=== PATIENT | female | born 1965 | race Hispanic/Latino ===

== ENCOUNTER → 2017-10-14 | Outpatient (CLI) | payer OTHER ==
[~2017-10-14] MED LIST: BENTYL10 MG PO; BLACK COHOSH540 MG PO; LANTUS 3ML100 UNITS/ INJ; LEVOTHYROXINE50 MCG PO; LOSARTAN POTASS50 MG PO; METFORMIN HCL1000 MG PO; MULTI-VITAMIN1 EACH PO; PROBIOTIC PO; SERTRALINE HCL50 MG PO; SIMVASTATIN20 MG PO; SUGAR BLOCKER PO; TROUJEO SQ; VITAMIN D350000 UNIT PO; ZEGERID 40 MG1 EACH; ZEGERID PO
--- NOTE | 2017-10-14 19:05 | Diagnostic Imaging Report ---
PROCEDURE:ABDOMEN-1VIEW (KUB) COMPARISON:KUB, 09/18/17. INDICATIONS:PREOP, STENT PLACED, RIGHT FLANK PAIN FINDINGS:Supine view of the abdomen shows a normal distribution of air in the small and large bowel. Again noted is a double-J right ureteral stent extending from the level of the right kidney to the bladder. Adjacent to the proximal aspect of the stent, near the UPJ, again noted is a calculus measuring 5 mm. There is a 3 mm calcification adjacent to the distal aspect of the stent, near the UVJ. It is uncertain if this smaller calcification is in the ureter or represents a phlebolith in the pelvis. Both calcifications are unchanged in position from the previous exam. Again noted are cholecystectomy clips. There is degenerative change in the spine. CONCLUSION:Stable position of right double-J ureteral stent. Again noted is a 5 mm calcification adjacent to the proximal aspect of the stent, near the UPJ level. Again noted is a 3 mm calcification adjacent to the distal aspect of the stent, near the UVJ level, possibly a small distal ureteral calculus or phlebolith in the pelvis. The calcifications are unchanged in position from previous exam. Dictated by: Duy Johnson M.D. on 10/14/2017 at 19:14 Electronically approved by: Duy Johnson M.D. on 10/14/2017 at 19:14
== END ==
LOC: RAD 15:44
PROVIDERS: ATTEND Urology
DX: N13.30 Unspecified hydronephrosis (principal); N20.0 Calculus of kidney
CPT/HCPCS: 74000

== ENCOUNTER → 2017-10-16 | Day surgery (SDC) | payer OTHER ==
[2017-10-14 17:08] LABS: ANION GAP 11.7 mmol/L (8-16); BLOOD UREA NITROGEN 12 mg/dL (7-26); BUN/CREATININE RATIO 14 (6-25); CALCIUM 8.6 mg/dL (8.4-10.2); CARBON DIOXIDE 26 mmol/L (22-29); CHLORIDE 107 mmol/L (98-107); CREATININE, SERUM 0.85 mg/dL (0.57-1.11); EST GLOMERULAR FILTRATION RATE > 60 ML/MIN (60-); GLUCOSE 336 mg/dL (74-118); POTASSIUM 3.7 mmol/L (3.5-5.1); SODIUM 141 mmol/L (136-145)
[~2017-10-16] MED LIST changes: +ACETAMINOPHEN 1000 MG/100 ML 100 ML IV ONE; +CEFTRIAXONE SOD 1 GM VIAL ONE; +FENTANYL CITRATE/PF 100MCG/2 ML INJ ONE; +HYDRALAZINE HCL 20 MG/ML VIAL ONE; +LIDOCAINE HCL 2% LOCAL INJ 5 ML SDV VIAL INJ ONE; +MIDAZOLAM HCL 2 MG/2 ML VIAL ONE; +PROPOFOL IV EMULSION 10 MG/ML 20 ML VIAL ONE; +SEVOFLURANE INHAL SOLN 250 ML PEN BTL ONE; +SODIUM CHLORIDE 0.9% 50ML 50 ML ONE
--- NOTE | 2017-10-16 07:47 | Diagnostic Imaging Report ---
PROCEDURE:ABDOMEN-1VIEW (KUB) TECHNIQUE:AP abdomen totaling 2 radiographs INDICATION:Preoperative evaluation COMPARISON:[facility], DX, ABDOMEN-1VIEW (KUB), 10/14/2017, 14:45. FINDINGS: See conclusion. CONCLUSION: 1. Right double-J ureteral stent looped formed over the renal pelvis and urinary bladder. 2. 1 cm stone in the expected region of the right ureteropelvic junction. 3. 2 mm stone at the distal aspect of the right ureter on the KUB from October 14 is not conspicuous. 4. Normal bowel gas pattern. No ascites. Dictated by: Miguel Lopez M.D. on 10/16/2017 at 7:56 Electronically approved by: Miguel Lopez M.D. on 10/16/2017 at 7:56
--- NOTE | 2017-12-15 05:07 | Operative Report ---
DATE OF PROCEDURE: October 16, 2017 PREOPERATIVE DIAGNOSIS: Right nephrolithiasis. POSTOPERATIVE DIAGNOSIS: Right nephrolithiasis. OPERATIONS PERFORMED 1. Staged right-sided extracorporeal shock wave lithotripsy. 2. Supervision on fluoroscopy. No radiologist present. ANESTHESIA: General. COMPLICATIONS: None. CLINICAL SUMMARY: Sharon Pedroza is a 52-year-old woman with a stent in place and a stone in place. She was brought for the above procedures. She is aware of the risks of bleeding, infection, injury to adjacent structures, need for additional procedures and elected to proceed. OPERATIVE PROCEDURE IN DETAIL: Informed consent was verified. Sharon Pedroza was appropriately identified, taken to the operating room, placed on the lithotripsy table in supine position. Anesthesia was uneventfully begun. The patient's right nephrolithiasis was localized with biplanar fluoroscopy. Total of 3000 shocks were delivered with fragmentation of the stone noted. The patient was then uneventfully reversed from anesthesia and taken to recovery room in stable condition. There were no complications during the procedure. She tolerated the procedure well. Explicit postop instructions were given. Will follow the patient up by returning her to the operating room in several weeks to remove her stent, perform a right ureteroscopy and hopefully render her stent-free and stone-free. Job#: [id number]
== END | disposition home or self-care (01) ==
LOC: OR 06:47
PROVIDERS: ATTEND Urology
DX: N20.0 Calculus of kidney (principal); Z96.0 Presence of urogenital implants; E11.9 Type 2 diabetes mellitus without complications; I10 Essential (primary) hypertension; Z01.810 Encounter for preprocedural cardiovascular examination; Z01.812 Encounter for preprocedural laboratory examination
CPT/HCPCS: 36415 ×2; 50590; 74000; 80048; 82948; 93005; J0360; J0696; J2001; J2250

== ENCOUNTER → 2017-11-25 | Day surgery (SDC) | payer OTHER ==
[2017-11-24 11:58] LABS: ANION GAP 14.6 mmol/L (8-16); BLOOD UREA NITROGEN 15 mg/dL (7-26); BUN/CREATININE RATIO 19 (6-25); CALCIUM 9.1 mg/dL (8.4-10.2); CARBON DIOXIDE 24 mmol/L (22-29); CHLORIDE 110 mmol/L (98-107); EST GLOMERULAR FILTRATION RATE > 60 ML/MIN (60-); GLUCOSE 84 mg/dL (74-118); POTASSIUM 4.6 mmol/L (3.5-5.1); SODIUM 144 mmol/L (136-145)
[~2017-11-25] MED LIST changes: -ACETAMINOPHEN 1000 MG/100 ML 100 ML IV ONE; +BELLADONNA/OPIUM 60 MG SUPP PR ONE; +DEXAMETHASONE SOD PHOS INJ 4 MG/ML VIAL ONE; -HYDRALAZINE HCL 20 MG/ML VIAL ONE; +IOPAMIDOL 610MG/1ML 300 MG/ML VIAL IV ONE; +ONDANSETRON HCL INJ 2 MG/ML VIAL ONE; -SODIUM CHLORIDE 0.9% 50ML 50 ML ONE
--- OUTSIDE RECORDS SUMMARY | 2017-11-25 06:06 | XMS REPORT ---
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 Allergies, Adverse Reactions, Alerts This patient has no known allergies or adverse reactions. Medications This patient has no known medications. Results Test Description Test Time Test Comments Text Results Atomic Results Result Comments ABDOMEN-1VIEW (KUB) [facility] [address] [place] [address] Patient Name: TRISHA VERGARA MR #: [id number] : 1965 Age/Sex: 52/F Req #: [id number] Adm Physician: Ordered by: HIRA GARAY MD Report #: [id number] Location: OR Room/Bed: Procedure: [id number] DX/ABDOMEN-1VIEW (KUB) Exam Date: 10/16/17 Exam Time : 0725 REPORT STATUS: Signed PROCEDURE: ABDOMEN-1VIEW (KUB) TECHNIQUE: AP abdomen totaling 2 radiographs INDICATION: Preoperative evaluation COMPARISON: [facility], DX, ABDOMEN-1VIEW (KUB), 10/14/2017, 14:45. FINDINGS: See conclusion. CONCLUSION: 1. Right double-J ureteral stent looped formed over the renal pelvis and urinary bladder. 2. 1 cm stone in the expected region of the right ureteropelvic junction. 3. 2 mm stone at the distal aspect of the right ureter on the KUB from October 14 is not conspicuous. 4. Normal bowel gas pattern. No ascites. Dictated by: Vianey Lopez M.D. on 2016 at 7:56 Electronically approved by: Vianey Lopez M.D. on at 7:56 Dictated By: VIANEY LOPEZ MD 075 Transcribed By: ERNESTO on 10/16/17 075 COPY TO: HIRA GARAY MD ABDOMEN-1VIEW (KUB) [place] [address] Patient Name: TRISHA VERGARA MR #: [id number] : 1965 Age/Sex: 52/F Req #: [id number] Adm Physician: Ordered by: HIRA GARAY MD Report #: [id number] Location: [facility] Room/Bed: Procedure: [id number] DX/ABDOMEN-1VIEW (KUB) Exam Date: 10/14/17 Exam Time: 1658 REPORT STATUS: Signed PROCEDURE: ABDOMEN-1VIEW (KUB) COMPARISON: KUB, 09/18/17. INDICATIONS: PREOP, STENT PLACED, RIGHT FLANK PAIN FINDINGS: Supine view of the abdomen shows a normal distribution of air in the small and large bowel. Again noted is a double-J right ureteral stent extending from the level of the right kidney to the bladder. Adjacent to the proximal aspect of the stent, near the UPJ, again noted is a calculus measuring 5 mm. There is a 3 mm calcification adjacent to the distal aspect of the stent, near the UVJ. It is uncertain if this smaller calcification is in the ureter or represents a phlebolith in the pelvis. Both calcifications are unchanged in position from the previous exam. Again noted are cholecystectomy clips. There is degenerative change in the spine. CONCLUSION: Stable position of right double-J ureteral stent. Again noted is a 5 mm calcification adjacent to the proximal aspect of the stent, near the UPJ level. Again noted is a 3 mm calcification adjacent to the distal aspect of the stent, near the UVJ level, possibly a small distal ureteral calculus or phlebolith in the pelvis. The calcifications are unchanged in position from previous exam. Dictated by : Branden Cassidy M.D. on 10/14/2017 at 19:14 Electronically approved by : Branden Cassidy M.D. on 10/14/2017 at 19:14 Dictated By: BRANDEN CASSIDY MD 13 Transcribed By: ERNESTO on 10/14/171913 COPY TO: HIRA GARAY MD ABDOMEN-1VIEW (KUB) [place] [address] Patient Name: TRISHA VERGARA MR #: [id number] : 1965 Age/Sex: 52/F Req #: [id number] Adm Physician: CHACORTA POLLOCK MD Ordered by: HIRA GARAY MD Report #: [id number] Location: [facility] Room/Bed: [place] [address] Procedure: [id number] DX/ABDOMEN-1VIEW (KUB) Exam Date: 09/18/17 Exam Time: 0800 REPORT STATUS: Signed PROCEDURE: ABDOMEN-1VIEW (KUB) TECHNIQUE: Supine AP abdomen totaling 2 radiographs INDICATION: Calculus of kidney; stent placement COMPARISON: [facility], DX, ABDOMEN-1VIEW (KUB), 09/17/2017, 8:43. FINDINGS: See conclusion. CONCLUSION: 1. Right double-J ureteral stent was formed in the renal pelvis and urinary bladder. 2. 6 mm stone at the right ureteropelvic junction. 3. Otherwise unremarkable study. Dictated by : Vianey Lopez M.D. on 09/18/2017 at 8:38 Electronically approved by: Vianey Lopez M.D. on 09/18/2017 at 8:38 Dictated By: VIANEY LOPEZ MD 7 Transcribed By: ERNESTO on 09/18/17837 COPY TO: HIRA GARAY MD ABDOMEN-1VIEW (KUB) [place] [address] Patient Name: TRISHA VERGARA MR #: [id number] : 1965 Age/Sex: 52/F Req #: [id number] [facility] Physician: CHACORTA POLLOCK MD Ordered by: HIRA GARAY MD Report #: [id number] Location: [facility] Room/Bed: [place] [address] Procedure: [id number] DX/ABDOMEN-1VIEW (KUB) Exam Date: 09/17/17 Exam Time: 0845 REPORT STATUS: Signed PROCEDURE: X-RAY ABDOMEN - KUB COMPARISON: CT abdomen and pelvis 09/17/2017. INDICATIONS: RIGHT CALCULUS OF THE KIDNEY FINDINGS: There is a non-obstructed bowel-gas pattern. Retained excreted contrast is present in the right collecting system with moderate right hydronephrosis. The contrast extends into the proximal right ureter at the level of the right transverse process of L2. The calculus in the proximal right ureter is obscured by the adjacent contrast. There are no calcifications projected over the left renal shadow, expected course of the left ureter or bladder. There are no acute osseous abnormalities. The lung bases are clear. CONCLUSION: Obstructing proximal right ureteral calculus with moderate right hydronephrosis. Dictated by: Doroteo Mejia M.D. on 09/17 at 9:12 Electronically approved by: Doroteo Mejia M.D. on 2016 at 9:12 Dictated By: DOROTEO MEJIA MD 1 Transcribed By: ERNESTO on 09/17/17911 COPY TO: HIRA GARAY MD CT ABDOMEN/PELVIS W [place] [address] Patient Name: TRISHA VERGARA MR #: [id number] : 1965 Age/Sex: 52/F Req #: [id number] Adm Physician: Ordered by: CONRADO LOPEZ MD Report #: [id number] Location: ER Room/Bed: Procedure: [id number] CT/CT ABDOMEN/PELVIS W Exam Date: Exam Time: REPORT STATUS: Signed EXAM: CT Abdomen and Pelvis WITH contrast INDICATION: Right-sided abdominal pain COMPARISON: None. TECHNIQUE: Abdomen and pelvis were scanned utilizing a multidetector helical scanner from the lung base to the pubic symphysis after administration of IV contrast. Coronal and sagittal reformations were obtained. Routine protocol was performed. Scan was performed when during portal venous phase. IV CONTRAST: 100 mL of Isovue-300 ORAL CONTRAST: Water RADIATION DOSE: Total DLP: 613.98 mGy*cm Estimated effective dose: (DLP x 0.015 x size factor) mSv COMPLICATIONS: None FINDINGS: LINES and TUBES: None. LOWER THORAX: Partially visualized right middle lobe nodule measuring 5 mm in diameter HEPATOBILIARY: The liver is diffuse hypodense compared to the spleen, consistent with diffuse hepatic diffuse hepatic steatosis. No focal hepatic lesions. No biliary ductal dilation. GALLBLADDER: There are cholecystectomy clips. SPLEEN: No splenomegaly. PANCREAS: No focal masses or ductal dilatation. ADRENALS: No adrenal nodules KIDNEYS/URETERS: Heterogeneous enhancement of the right kidney. Mild hydronephrosis. No cystic or solid mass lesions. 8 mm stone visualized at the right UPJ GI TRACT: No abnormal distention, wall thickening, or evidence of bowel obstruction. Appendix is normal. PELVIC ORGANS/BLADDER: There are postop changes of hysterectomy and bilateral oophorectomies. LYMPH NODES: No lymphadenopathy. VESSELS: There is mild atherosclerotic disease in the aorta and major arterial branches. PERITONEUM / RETROPERITONEUM: No free air or fluid. BONES: Unremarkable. SOFT TISSUES: Unremarkable. IMPRESSION: 1. Obstructive 8 mm right renal pelvis stone at the UPJ. 2. A 5 mm pulmonary nodule in the right middle lobe. Follow-up with CT of the chest in 3 months is recommended. 3. Hepatic steatosis. Signed by: Dr. Georgi Diana M.D. on 09/17/2017 1:31 AM Dictated By: GEORGI LUCERO MD 0 Transcribed By: FABRICIO on 09/17/17130 COPY TO: CONRADO LOPEZ MD
--- NOTE | 2017-11-25 07:32 | Diagnostic Imaging Report ---
PROCEDURE:X-RAY ABDOMEN - KUB COMPARISON:[facility], DX, ABDOMEN-1VIEW (KUB), 10/16/2017, 5:08. INDICATIONS:PREOPERATIVE XRAY FOR KIDNEY STONE SURGERY FINDINGS: Right double J ureteral stent in appropriate location. Small stone in the right lower pole with several small stones adjacent to the proximal stent within the ureter. The larger stone seen previously apparently has been fragmented. There are no dilated loops of bowel to suggest obstruction. Multiple pelvic phleboliths. There is no evidence of free air. No acute osseous abnormalities are present. CONCLUSION: No acute abdominal abnormality. Reymundo Ortega D.O. Dictated by: Reymundo Ortega D.O. on 11/25/2017 at 7:41 Electronically approved by: Reymundo Ortega D.O. on 11/25/2017 at 7:41
--- NOTE | 2017-12-31 05:36 | Operative Report ---
DATE OF PROCEDURE: November 25, 2017 PREOPERATIVE DIAGNOSES 1. Right nephrolithiasis. 2. Expected renal colic. 3. Foreign body (right indwelling ureteral stent). 4. Right ureterolithiasis. POSTOPERATIVE DIAGNOSES 1. Right nephrolithiasis. 2. Expected renal colic. 3. Foreign body (right indwelling ureteral stent). 4. Right ureterolithiasis. 5. Minimal rectocele. 6. Atrophic (senile) vaginitis. OPERATIONS PERFORMED: Note these are all staged procedures as part of multistage, multistep process of managing the patient's extensive urolithiasis. 1. Cystourethroscopy with complicated removal of right indwelling ureteral stent (separate procedure performed with separate scope for the diagnosis of stent). 2. Right semi-rigid ureteroscopy with stone manipulation (separate procedure performed for the diagnosis the ureteral stones). 3. Extensive and repeated right ureteropyeloscopy with extraction of numerous stones (separate procedure performed for the diagnosis of the multiple stone fragments left within the kidney). 4. Radiological services for supervision and interpretation of ureteroscopy. 5. Cystourethroscopy with insertion of right indwelling ureteral stent (separate procedure performed to relieve any renal colic that is expected). 6. Interpretation of retrograde ureteropyelography. 7. Supervision of fluoroscopy. No radiologist present. 8. Pelvic examination under anesthesia. ANESTHESIA: General. COMPLICATIONS: None. CLINICAL SUMMARY: Sharon Pedroza is a 52-year-old woman who had management of her stones. She has a remaining stent and residual stone pieces. She is aware of the risks of bleeding, infection, injury to adjacent structures, need for additional procedures, and elected to proceed. OPERATIVE PROCEDURE IN DETAIL: Informed consent was verified. Sharon Pedroza was properly identified and taken to the operating room and placed on the cystoscopy table in the supine position. Anesthesia was uneventfully begun. The patient was then carefully and gently repositioned in the dorsal lithotomy position with all pressure points well-padded. Her genitalia were prepared and draped in the usual sterile fashion. The 22.5-Kazakh cystoscope sheath with the obturator in place was atraumatically inserted in the patient's urethra and the bladder was drained. Panendoscopy of the urinary bladder revealed no suspicious mucosal lesions. No tumors. No stones and no diverticula. Normally positioned and configured ureteral orifices were identified. The stent was noted to be emerging from the right ureteral orifice and was minimally encrusted. A guidewire was then placed alongside the stent and guided to the level of the patient's kidney. The stent was then grasped, completely removed and discarded. Semi-rigid ureteroscope was then brought up into the right ureter. We identified some fine sand. This fine sand was irrigated loose, and hopefully it will evacuate following this the ureteroscopic manipulation. Flexible ureteroscope was brought up over a secondary guidewire into the patient's kidney. We identified numerous stones. Multiple passes were made with the ureteroscope each time grasping a stone fragment and extracting it and then returning the ureteroscope back up into the kidney to remove additional fragments. This was a very extensive procedure for numerous stones. Once we removed the bulk of the stones and only fine sand remained, the ureteroscope was withdrawn. With cystoscopic and fluoroscopic guidance, a right-sided indwelling ureteral stent was then placed. It was coiled in the patient's kidney, as well as the patient's bladder at the end of the case. Interpretation of retrograde ureteropyelography. Contrast was instilled in a retrograde fashion on the right hand side. There was chronic fullness and hydronephrosis on the right hand side. There was no extravasation. Stent was in good position and coiled in the patient's kidney, as well as the patient's bladder at the end of the case. The patient's bladder was then drained. Cystoscope was withdrawn. Pelvic examination under anesthesia revealed a minimal rectocele with atrophic (senile) vaginitis. No abnormal palpable pelvic masses could be appreciated. There were no obvious mucosal lesions. The patient was then uneventfully reversed from anesthesia and taken to the recovery room in stable condition. There were no complications with the procedure. The patient tolerated the procedure well. Explicit postoperative instructions were given. Will plan on returning the patient to the operating room in several weeks to remove her stent and perform another right ureteroscopy and hopefully render the patient stent-free and stone-free. Ongoing urological followup for metabolic workup will be initiated after that. Job#: [id number] [place]
== END | disposition home or self-care (01) ==
LOC: OR 06:04
PROVIDERS: ATTEND Urology
DX: N20.1 Calculus of ureter (principal); N20.0 Calculus of kidney; Z46.6 Encounter for fitting and adjustment of urinary device; N13.30 Unspecified hydronephrosis; N81.6 Rectocele; N95.2 Postmenopausal atrophic vaginitis; I10 Essential (primary) hypertension; K21.9 Gastro-esophageal reflux disease without esophagitis; I49.1 Atrial premature depolarization; E11.9 Type 2 diabetes mellitus without complications; F32.9 Major depressive disorder, single episode, unspecified; F41.9 Anxiety disorder, unspecified; Z01.812 Encounter for preprocedural laboratory examination
CPT/HCPCS: 36415 ×2; 52332; 52352; 74000; 74420; 80048; 82948; 88300; J0696; J1100; J2001; J2250; J2405; Q9967; 74018

== ENCOUNTER → 2017-12-23 | Day surgery (SDC) | payer OTHER ==
[2017-12-22 16:45] LABS: ANION GAP 14.8 mmol/L (8-16); BLOOD UREA NITROGEN 11 mg/dL (7-26); BUN/CREATININE RATIO 14 (6-25); CALCIUM 9.2 mg/dL (8.4-10.2); CARBON DIOXIDE 23 mmol/L (22-29); CHLORIDE 107 mmol/L (98-107); EST GLOMERULAR FILTRATION RATE > 60 ML/MIN (60-); GLUCOSE 145 mg/dL (74-118); POTASSIUM 3.8 mmol/L (3.5-5.1); SODIUM 141 mmol/L (136-145)
[~2017-12-23] MED LIST changes: +EPHEDRINE SULFATE INJ 50 MG/10 ML SYR ONE
--- NOTE | 2018-02-08 10:13 | Operative Report ---
DATE OF PROCEDURE: December 23, 2017 PREOPERATIVE DIAGNOSES 1. Right nephrolithiasis. 2. Foreign body (right indwelling ureteral stent). POSTOPERATIVE DIAGNOSES 1. Right nephrolithiasis. 2. Foreign body (right indwelling ureteral stent). 3. Mild cystocele. 4. Moderate to severe rectocele. 5. Atrophic (senile) vaginitis. OPERATIONS PERFORMED: Note these are all staged procedures as part of multistage, multistep process of managing the patient's urolithiasis. 1. Cystourethroscopy with complicated removal of right indwelling ureteral stent (separate procedure performed for diagnosis of the stent with a separate scope). 2. Right ureteroscopy with stone manipulation and extraction (separately procedure performed multiple times for multiple renal stone fragments). 3. Radiological services for supervision and interpretation of ureteropyelography. 4. Interpretation of retrograde ureteropyelography. 5. Supervision of fluoroscopy. No radiologist present. 6. Pelvic examination under anesthesia. ANESTHESIA: General. COMPLICATIONS: None. CLINICAL SUMMARY: Sharon Pedroza is a 52-year-old woman who has had a stone managed and stent placed. She is brought for another step in her stone management process. She is aware of the risks of bleeding, infection, injury to adjacent structures, need for additional procedures, and elected to proceed. OPERATIVE PROCEDURE IN DETAIL: Informed consent was verified. Sharon Pedroza was properly identified and taken to the operating room and placed on the cystoscopy table in the supine position. Anesthesia was uneventfully begun. The patient was then carefully and gently repositioned in the dorsal lithotomy position with all pressure points well-padded. Her genitalia were prepared and draped in the usual sterile fashion. The 22.5-Monegasque cystoscope sheath with obturator in place was atraumatically inserted in the patient's urethra and the bladder was drained. Panendoscopy of the urinary bladder revealed no suspicion of lesions. No tumors. No stones and no diverticula. There was a stent emerging from the right ureteral orifice. A guidewire was then placed alongside the stent and guided to the level of the patient's kidneys. The stent was then grasped, completely removed and discarded. A semi-rigid ureteroscope was then inserted alongside the guidewire up into the distal ureter. We did not identify any stone there. A secondary guidewire was then placed. Flexible ureteroscope was the brought up over the secondary guidewire up into the patient's kidney where we identified multiple stone fragments. Stef's plaques were present on most of the papilla. We utilized a Nitinol tipless basket to grasp one stone and extracted atraumatically. We then reintroduced the secondary guidewire. We reintroduced the ureteroscope and went back up into the kidney. Grasped one stone and extracted atraumatically. Once all stone burden was extracted with this maneuver, we brought the ureteroscope up one last time in order to ensure no stones remained. In deed, no stones remained. Only the Stef's plaques were visible. We carefully examined the ureter as we exited and it did not exhibit any residual stones nor strictures nor any suspicious lesions. The patient's bladder was then drained. The cystoscope was withdrawn. Pelvic examination under anesthesia revealed a grade 1 cystocele and a grade 2-3rectocele. There was atrophic (senile) vaginitis. The patient was then uneventfully reversed from anesthesia and taken to the recovery room in stable condition. There were no complications to the procedure. She tolerated the procedure well. Explicit postoperative instructions were given. Will follow the patient up in the office. Interpretation of retrograde ureteropyelography. Contrast was instilled in a retrograde fashion via the ureteroscope. There was pyelosinus backflow throughout the kidney, as well as very prominent pyelotubular backflow throughout the ureteroscopy process. There is no significant hydronephrosis. The ureter appeared delicate and normal. Job#: [id number] RUEL
== END | disposition home or self-care (01) ==
LOC: OR 06:51
PROVIDERS: ATTEND Urology
DX: N20.0 Calculus of kidney (principal); Z46.6 Encounter for fitting and adjustment of urinary device; N81.10 Cystocele, unspecified; N81.6 Rectocele; N95.2 Postmenopausal atrophic vaginitis; N28.89 Other specified disorders of kidney and ureter; I10 Essential (primary) hypertension; E11.9 Type 2 diabetes mellitus without complications; E03.9 Hypothyroidism, unspecified; F32.9 Major depressive disorder, single episode, unspecified; Z01.810 Encounter for preprocedural cardiovascular examination; Z01.812 Encounter for preprocedural laboratory examination
CPT/HCPCS: 36415 ×2; 52352; 74420; 80048; 82948; 88300; 93005; J0696; J1100; J2001; J2250; J2405; Q9967

== ENCOUNTER → 2021-03-22 | Outpatient (CLI) | payer OTHER ==
[~2021-03-22] MED LIST changes: +BASAGLAR K100 UNIT/1 SC; -BELLADONNA/OPIUM 60 MG SUPP PR ONE; -CEFTRIAXONE SOD 1 GM VIAL ONE; -DEXAMETHASONE SOD PHOS INJ 4 MG/ML VIAL ONE; -EPHEDRINE SULFATE INJ 50 MG/10 ML SYR ONE; -FENTANYL CITRATE/PF 100MCG/2 ML INJ ONE; +IOPAMIDOL 370 MG/ML 200 ML INFUS..BTL INJ ONE; -IOPAMIDOL 610MG/1ML 300 MG/ML VIAL IV ONE; -LIDOCAINE HCL 2% LOCAL INJ 5 ML SDV VIAL INJ ONE; -MIDAZOLAM HCL 2 MG/2 ML VIAL ONE; +OMEPRAZOLE40 MG PO; -ONDANSETRON HCL INJ 2 MG/ML VIAL ONE; -PROPOFOL IV EMULSION 10 MG/ML 20 ML VIAL ONE; -SEVOFLURANE INHAL SOLN 250 ML PEN BTL ONE; +SODIUM CHLORIDE 0.9% 50ML 50 ML ONE
== END ==
LOC: CT 13:30
PROVIDERS: ATTEND Internal Medicine Gastroenterology
DX: R10.31 Right lower quadrant pain (principal)
CPT/HCPCS: 74177; Q9967

== ENCOUNTER → 2021-03-29 | Day surgery (SDC) | payer OTHER ==
[~2021-03-29] MED LIST changes: +FENTANYL CITRATE/PF 100MCG/2 ML INJ ONE; +HYOSCYAMINE SULFATE 0.5 MG/ML INJ ONE; -IOPAMIDOL 370 MG/ML 200 ML INFUS..BTL INJ ONE; +LIDOCAINE HCL 2% LOCAL INJ 5 ML SDV VIAL INJ ONE; +MIDAZOLAM HCL 2 MG/2 ML VIAL ONE; +PROPOFOL IV EMULSION 10 MG/ML 20 ML VIAL ONE; -SODIUM CHLORIDE 0.9% 50ML 50 ML ONE
[2021-03-29 16:32] LABS: WBC,FECAL (FECAL LACTOFERRIN) NEGATIVE (NEGATIVE)
[2021-03-29 16:45] VITALS: BP 109/70
[2021-03-30 15:09] LABS: C DIFFICILE TOXIN A&B AMP PROB NEGATIVE (NEGATIVE)
== END | disposition home or self-care (01) ==
LOC: OR 12:48
PROVIDERS: ATTEND Internal Medicine Gastroenterology
DX: K52.9 Noninfective gastroenteritis and colitis, unspecified (principal); K63.5 Polyp of colon; K62.89 Other specified diseases of anus and rectum; K57.30 Diverticulosis of large intestine without perforation or abscess without bleeding; K64.8 Other hemorrhoids; K21.9 Gastro-esophageal reflux disease without esophagitis; I10 Essential (primary) hypertension; E11.9 Type 2 diabetes mellitus without complications; E03.9 Hypothyroidism, unspecified; N20.0 Calculus of kidney; E78.5 Hyperlipidemia, unspecified; F41.9 Anxiety disorder, unspecified; Z01.810 Encounter for preprocedural cardiovascular examination; Z79.4 Long term (current) use of insulin; Z68.36 Body mass index [BMI] 36.0-36.9, adult; Z80.0 Family history of malignant neoplasm of digestive organs
CPT/HCPCS: 36415; 45380; 82948; 83630; 83993; 87045; 87177; 87328; 87493; 93005; J1980; J2001; J2704; 45378; J2250; J3010

== ENCOUNTER 2021-06-27 12:15 | Emergency (ER) | payer OTHER ==
[~2021-06-27] VITALS: Ht 144.8 cm; Wt 74.8 kg
[~2021-06-27 12:15] MED LIST changes: -FENTANYL CITRATE/PF 100MCG/2 ML INJ ONE; -HYOSCYAMINE SULFATE 0.5 MG/ML INJ ONE; -LIDOCAINE HCL 2% LOCAL INJ 5 ML SDV VIAL INJ ONE; -MIDAZOLAM HCL 2 MG/2 ML VIAL ONE; -PROPOFOL IV EMULSION 10 MG/ML 20 ML VIAL ONE
[2021-06-27] MEDS ORDERED: ACETAMINOPHEN-1 EAC3 PO ×2 (13:06→13:11)
[2021-06-27] MEDS ORDERED: PENICILLIN V P500 MG PO (13:18)
== END 2021-06-27 13:41 | disposition home or self-care (01) ==
LOC: FSED 12:52
DX: K12.1 Other forms of stomatitis (principal); E11.9 Type 2 diabetes mellitus without complications; E78.5 Hyperlipidemia, unspecified; E78.00 Pure hypercholesterolemia, unspecified; F32.9 Major depressive disorder, single episode, unspecified; F17.210 Nicotine dependence, cigarettes, uncomplicated
CPT/HCPCS: 99282